=== PATIENT | female | born 1955 | race Caucasian/White ===

== ENCOUNTER 2023-12-26 01:18 | Inpatient (IN) | payer OTHER, SELFPAY ==
[2023-12-25] VITALS (11 sets, daily range): BP systolic 147–167; BP diastolic 52–59
[2023-12-25 19:32] LABS: % Basophils 0.8 % (0-2); % Eosinophils 3.3 % (0-6); % Immature Granulocytes 0.3 % (0-0.5); % Lymphocytes 12.2 % (20.5-51.1); % Monocytes 6.2 % (1.7-9.3); % Neutrophils 77.2 % (42.2-75.2); Absolute Basophils 0.1 10^3/uL (0-0.2); Absolute Eosinophils 0.3 10^3/uL (0-0.7); Absolute Lymphocytes 1.2 10^3/uL (1.2-3.4); Absolute Monocytes 0.6 10^3/uL (0.1-0.6); Absolute Neutrophils 7.7 10^3/uL (1.4-6.5); Mean Corpuscular Hgb 24.2 pg (27.0-31.0); Mean Corpuscular Volume 80.8 fL (81.0-99.0); Mean Platelet Volume 9.5 fL (7.4-10.4); Nucleated Red Blood Cells % 0 %; Platelet Count 415 10^3/uL (130-400); Red Cell Dist. Width 15.4 % (11.5-14.5)
[2023-12-25 19:35] LABS: Hemoglobin 6.3 g/dL (12.0-16.0)
[2023-12-25 19:48] LABS: ALT (SGPT) 13 U/L (0-35); AST (SGOT) 20 U/L (14-36); Albumin 3.5 g/dl (3.5-5.0); Alkaline Phosphatase 51 U/L (38-126); Blood Urea Nitrogen 30 mg/dl (7-17); Calcium 8.8 mg/dl (8.4-10.2); Carbon Dioxide 25 mmol/L (22-30); Chloride 105 mmol/L (98-107); Glucose 170 mg/dl (70-99); Potassium 4.3 mmol/L (3.5-5.1); Sodium 134 mmol/L (135-145); Total Bilirubin 0.3 mg/dl (0.2-1.3); eGFR 37.49
--- NOTE | 2023-12-25 20:06 | ED.GENMED ---
History of Present Illness
General
Chief Complaint: Abnormal Lab Value
Source: patient
Exam Limitations: none
Time Seen by Provider: 12/25/23 19:19
Travel History
Have you had any contact with someone who has COVID-19?: No
Do you have any symptoms of coronavirus? Fever > 100 degrees, chills, cough, shortness of breath, sore throat, loss of taste or smell, muscle aches, or headache?: No
History of Present Illness
History of Present Illness:
This is a 68 year old female that comes in with c/o abnormal labs. States that she was told that her Hgb is low at 6.7. States that she has felt sick for the past 5 days. States that she has been tired, and she just didn't want to do anything.
States that she had some dizziness this morning and has pressure with urination. Denies any fever, chills, chest pain, SOB, abd pain, nausea, vomiting, diarrhea, headache, urinary burning.
Past History
Past History
ED Past Medical History: CAD, COPD (Patient denies), CVA (Patient denies), GERD, HTN, Hypercholesterolemia, IDDM, Psychiatric (Depression, anxiety) and Other (Neuropathy, cardiomyopathy, PVD, Diverticulitis, Phantom limb pain, Anemia)
ED Past Surgical History: Appendectomy, Cardiac (Stent) and Orthopedic (Right above-knee amputation. )
Patient has exhibited threatening behavior?: No
PSI?: No
Social History
Tobacco: Non-smoker
Alcohol: None
Drug: None
Personal:
Living: senior living ([facility])
Review of Systems
Review of Systems
All Other Systems: ROS reviewed and negative except as documented in HPI and ROS
Constitutional: Reports no symptoms; Denies fever or chills
EENT: Reports no symptoms
Respiratory: Reports no symptoms; Denies cough or trouble breathing
Cardiac: Reports no symptoms; Denies chest pain
ABD/GI: Reports no symptoms; Denies abdominal pain, nausea, vomiting, diarrhea, bloody stools or black stools
: Reports incontinence and other (Pressure with urination); Denies dysuria, frequency or urgency
Musculoskeletal: Reports no symptoms
Skin: Reports no symptoms
Neurological: Reports dizzy; Denies headache
Psychiatric: Reports no symptoms
Phy Exam
General Physical Exam
General Presentation: no apparent distress
General age: appears stated age
General Skin: warm and dry
General Habitus: elderly
General Mental: alert
General Hydration: appears well hydrated
ENT Exam
ENT Exam: TM's normal, pharynx normal and neck supple
Eye Exam
Eye Exam: EOMI
Cardiovascular Exam
Cardiovascular Exam: regular rate/rhythm and no edema
Pulmonary Exam
Pulmonary Exam: lungs clear, no respiratory distress, no rales, chest non tender, no crackles, no rhonchi, no wheezing and no cough
Gastrointestinal Exam
Gastrointestinal Exam: normal bowel sounds, non tender, soft, no organomegaly, no pulsatile mass, non distended and other (stool brown hem negative)
Musculoskeletal Exam
Musculoskeletal Exam: no edema (Left lower leg)
Skin Exam
Skin Exam: normal color, warm/dry, no rash and no petechia
Psychiatric Exam
Psychiatric Exam: normal mood/affect
Course
Orders/Labs/Results
Orders:
Orders
12/25/23 19:10
Complete Blood Count/With Diff Urgent
Comprehensive Metabolic Panel Urgent
12/25/23 19:21
Type+Screen Urgent
12/25/23 20:02
* Blood Bank Products Urgent
Blood Bank Products: *Packed RBC Leuko(PRBC's)
Quantity: 2
Transfuse Today: Yes
Reason: Anemia
IV Insert/Care/Rem.- Treatment PRN
12/25/23 22:07
Urinalysis Reflex To Culture Urgent
Date Specimen was Collected: 12/25/23
Time Specimen was Collected: 20:15
Urine Microscopic Reflex Cult Urgent
Urine Culture Urgent
THANIA Source: U
Specimen Description:
Date Specimen was Collected: 12/25/23
Time Specimen was Collected: 20:15
12/25/23 23:08
Oxycodone/Acetaminophen [Percocet 5/325] 1 tablet PO NOW STA
12/25/23 23:55
CefTRIAXone [Rocephin] 1,000 mg IV NOW STA
Abnormal Lab Results
12/25/23 12/25/23 12/25/23
19:10 19:21 22:07
RBC 2.60 L 10^6/uL
(4.20-5.40)
Hgb 6.3 L* g/dL
(12.0-16.0)
Hct 21.0 L %
(37.0-47.0)
MCV 80.8 L fL
(81.0-99.0)
MCH 24.2 L pg
(27.0-31.0)
MCHC 30.0 L g/dL
(33.0-37.0)
RDW 15.4 H %
(11.5-14.5)
Plt Count 415 H 10^3/uL
(130-400)
Absolute Neuts (auto) 7.7 H 10^3/uL
(1.4-6.5)
Neutrophils % 77.2 H %
(42.2-75.2)
Lymphocytes % 12.2 L %
(20.5-51.1)
Sodium 134 L mmol/L
(135-145)
BUN 30 H mg/dl
(7-17)
Creatinine 1.5 H mg/dL
(0.6-1.0)
Glucose 170 H mg/dl
(70-99)
Total Protein 6.0 L g/dl
(6.3-8.2)
Ur Occult Blood Reflex 2+ A
(Negative)
Urine Nitrite (Reflex) Positive A
(Negative)
Leukocyte Esterase Rfl 2+ A
(Negative)
Urine WBC (Reflex) >100 A /HPF
(0-5)
Urine Bacteria (Reflex) Many A
(Negative)
Urine Albumin (Reflex) 1+ A
(Neg - Trace)
Crossmatch IS Only See Detail
12/25/23 19:10
12/25/23 19:10
H/H low. Anemia, Dehydration. Glucose nonfasting. Total protein slightly low.
Vital Signs
Initial and Last Documented VS:
Initial Vital Signs
Temp Pulse Resp BP Pulse Ox
98.8 F 77 16 147/54 95
12/25/23 19:09 12/25/23 19:09 12/25/23 19:09 12/25/23 19:09 12/25/23 19:09
Last Documented Vital Signs
Temp Pulse Resp BP Pulse Ox
98.3 F 76 20 155/58 97
12/25/23 22:55 12/25/23 23:55 12/25/23 23:55 12/25/23 23:55 12/25/23 23:55
MDM/Problems Addressed
Differential Diagnosis Includes:
Chronic anemia
MDM/Problems Addressed:
This is a 68 year old female that comes in with c/o abnormal labs. States that she was told that her Hgb is low. States that she is due to have a Colonoscopy the end of this month. States that she has received blood in the past.
Will get labs and as needed give blood. Patient is not hypoxic and appears very stable. Patient also has a UTI. Will admit. Hospitalist notified.
Chronic conditions affecting care:
Chronic anemia
Acute Exacerbation and/or Progression of Chronic Illness:
Anemia
*Pulse Oximetry
Patient hypoxic: no
*EKG
Interpreted by ED Provider?: NA
Rate: EKG- N/A
*[employer] Interpretation
Rate: normal
Heart Rate: 71
Rhythm: sinus
*Critical Care Note
Total Time (30-74mins, 75-104mins- exclusive of procedures): Not Applicable
ED Attending Note
-
Portions of this chart may have been created with voice recognition software.� Occasional wrong word or��sound alike� substitutions may have occurred due to the inherent limitations of voice recognition software.
Discharge Plan
Departure
Patient Disposition: Admit
Date of Disposition: 12/25/23
Time of Disposition: 23:59
Admit to: Med/Surg
Presentation/result/management discussed w/ accepting MD/DO: Hospitalist
Patient with high blood pressure during this ER visit?: Yes
Condition: Good
Covid-19: Not Applicable
Discharge Problem:
Urinary tract infection, Low hemoglobin
Prescriptions:
No Action
atorvastatin 40 MG tablet
40 mg PO HS
clonidine 0.1 MG patch weekly
0.1 mg transdermal FR
clopidogrel 75 MG tablet
75 mg PO DAILY
loratadine 10 MG tablet
10 mg PO DAILY
amlodipine 5 MG tablet
5 mg PO DAILY
pantoprazole 40 MG tablet,delayed release (DR/EC)
40 mg PO DAILY
solifenacin 5 MG tablet
5 mg PO DAILY
metoprolol tartrate 100 MG tablet
100 mg PO BID
hydralazine 50 MG tablet
50 mg PO TID
calcitriol 0.25 MCG capsule
0.25 mcg PO DAILY
duloxetine 60 MG capsule,delayed release(DR/EC)
60 mg PO BID
pregabalin 75 MG capsule
75 mg PO BID
Hold Instructions: Restart when mental status consistently improved
fenofibrate nanocrystallized 48 MG tablet
48 mg PO DAILY
clonazepam 0.5 MG tablet
0.5 mg PO HS
melatonin 5 mg Tablet
5 mg PO HS
benzonatate 100 mg capsule
100 mg PO TIDPRN PRN (Reason: cough)
Levemir FlexPen 100 unit/mL (3 mL) Insulin Pen
44 unit SC HS
ipratropium-albuterol 0.5 mg-3 mg(2.5 mg base)/3 mL solution for nebulization
3 ml inhalation R Q6HPRN PRN (Reason: shortness of breath or wheezing)
zolpidem 5 mg Tablet
5 mg PO HS Qty: 2 0RF
sennosides-docusate sodium [Senokot-S] 8.6-50 mg Tablet
1 tab-cap PO BID
guaifenesin 100 mg/5 mL Liquid
600 mg PO Q6H PRN (Reason: respiratory cough)
insulin aspart U-100 [Novolog FlexPen U-100 Insulin] 100 unit/mL (3 mL) Insulin Pen
2 - 14 sliding scale dose SC ACHS
Rx Instructions:
sliding scale: 201-250= 2; 251-300= 4; 301-350= 6; 351-400= 8; 401-450= 10; 451-500= 14
polyethylene glycol 3350 [Miralax] 17 gram powder in packet
17 g PO DAILY PRN (Reason: constipation)
docusate sodium 100 mg capsule
200 mg PO DAILY
insulin aspart U-100 [Novolog FlexPen U-100 Insulin] 100 unit/mL (3 mL) insulin pen
20 units SC MEALS
pantoprazole [Protonix] 40 mg tablet,delayed release (DR/EC)
40 mg PO BID Qty: 60 0RF
acetaminophen 325 mg Tablet
650 mg PO Q6HPRN PRN (Reason: mild to mod pain) Qty: 0 0RF
hydrocodone-acetaminophen 5-325 mg Tablet
1 tab PO Q6HPRN PRN (Reason: severe pain) Qty: 8 0RF
Referrals:
UNKNOWN - PT DOES,NOT KNOW [Unknown Provider] -
Interventions
Interventions:
*Risk Screen - Suicide Last Done: 12/25/23 19:09
*General Assessment Last Done: 12/25/23 19:09
*Neglect/Abuse Screening Last Done: 12/25/23 19:09
ED- Fall Risk Assessment Last Done: 12/25/23 22:55
*ED COVID-19 Vaccine History Last Done: 12/25/23 19:09
[2023-12-25 22:15] LABS: Urine Albumin 1+ (Neg - Trace); Urine Bilirubin Negative (Negative); Urine Character Very Cloudy (Clear); Urine Color Yellow; Urine Glucose Negative (Negative); Urine Ketone Negative (Negative); Urine Leukocyte 2+ (Negative); Urine Nitrite Positive (Negative); Urine Occult Blood 2+ (Negative); Urine Specific Gravity 1.015 (<1.030); Urine Urobilinogen Negative (Neg - 1+)
[2023-12-25 22:21] LABS: Urine Bacteria Many (Negative); Urine White Cell >100 /HPF (0-5)
[2023-12-25] MEDS: PERCOCET 5/325 1 TABLET PO (23:50)
[2023-12-26] VITALS (11 sets, daily range): BP systolic 122–194; BP diastolic 44–72; BMI 38.3
[2023-12-26] MEDS: ROCEPHIN 1000 MG IV ×2 (00:40→23:08)
--- NOTE | 2023-12-26 00:47 | HPS.HSE ---
Family Physician
-
Family Physician: Fernando Al
Chief Complaint
-
abnormal low Hgb, Bladder pressure
History of Present Illness
68F [facility] Res HX CAD on Plavix , CM, HTN, HX ACBLA due to gastric erosion, Fe Def Anemia, CKD3, diabetes, neuropathy, right lower extremity AKA sent ER for abn labs. Was told Hgb 6.7.
Report bladder pressure with urination but deneid dysurai.
Associated tiredness, fatigue and weakness.
ROS
Denies any fever, chills, chest pain, SOB, abd pain, nausea, vomiting, diarrhea, headache, urinary burning
Medical History
Past Medical History
Past Medical History: Reports Other
Additional Past Medical History:
AD, COPD (Patient denies), CVA (Patient denies), GERD, HTN, Hypercholesterolemia, IDDM, Psychiatric (Depression, anxiety) and Other (Neuropathy, cardiomyopathy, PVD, Diverticulitis, Phantom limb pain, Anemia)
Past Surgical History: Reports Other
Additional Past Surgical History:
Appendectomy, Cardiac (Stent) and Orthopedic (Right above-knee amputation. )
Social History
Tobacco: Non-smoker
Alcohol: None
Family History
Family History: Not pertinent
Allergies / Home Medications
Allergies reflects when Allergies were last updated in [facility].
Home Medications with original date entered in [facility]
Allergy/Medication List:
Allergies
Allergy/AdvReac Type Severity Reaction Status Date / Time
Iodinated Contrast Media Allergy Anaphylaxis Verified 08/21/23 20:06
Home Medications
atorvastatin 40 mg tablet 40 mg PO HS High cholesterol 12/26/18
clonidine 0.1 mg/24 hr weekly transdermal patch 0.1 mg transdermal FR Blood pressure 12/26/18
clopidogrel 75 mg tablet 75 mg PO DAILY Blood clot prevention/tx 12/26/18
loratadine 10 mg tablet 10 mg PO DAILY Allergies 12/26/18
amlodipine 5 mg tablet 5 mg PO DAILY Blood pressure 08/03/21
pantoprazole 40 mg tablet,delayed release 40 mg PO DAILY Gastrointestinal issue 08/03/21
solifenacin 5 mg tablet 5 mg PO DAILY Urinary issue 08/03/21
calcitriol 0.25 mcg capsule 0.25 mcg PO DAILY Kidney Disease 11/25/21
duloxetine 60 mg capsule,delayed release 60 mg PO BID Depression 11/25/21
fenofibrate nanocrystallized 48 mg tablet 48 mg PO DAILY High cholesterol 11/25/21
hydralazine 50 mg tablet 50 mg PO TID Blood pressure 11/25/21
metoprolol tartrate 100 mg tablet 100 mg PO BID Blood pressure 11/25/21
pregabalin 75 mg capsule 75 mg PO BID Fibromyalgia 11/25/21
clonazepam 0.5 mg tablet 0.5 mg PO HS Mental Health/Anxiety 01/06/22
melatonin 5 mg tablet 5 mg PO HS Sleep 08/27/22
benzonatate 100 mg capsule 100 mg PO TIDPRN PRN cough 10/16/22
insulin detemir U-100 100 unit/mL (3 mL) subcutaneous pen (Levemir FlexPen) 44 unit SC HS Diabetes 10/16/22
ipratropium 0.5 mg-albuterol 3 mg (2.5 mg base)/3 mL nebulization soln 3 ml inhalation R Q6HPRN PRN shortness of breath or wheezing 10/16/22
zolpidem 5 mg tablet 5 mg PO HS #2 tabs 10/24/22
docusate sodium 100 mg capsule 200 mg PO DAILY Constipation 08/21/23
guaifenesin 100 mg/5 mL oral liquid 600 mg PO Q6H PRN respiratory cough 08/21/23
insulin aspart U-100 100 unit/mL (3 mL) subcutaneous pen (Novolog FlexPen U-100 Insulin aspart) 2 - 14 sliding scale dose SC ACHS Diabetes 08/21/23
insulin aspart U-100 100 unit/mL (3 mL) subcutaneous pen (Novolog FlexPen U-100 Insulin aspart) 20 units SC MEALS Diabetes 08/21/23
polyethylene glycol 3350 17 gram oral powder packet (Miralax) 17 g PO DAILY PRN constipation 08/21/23
sennosides 8.6 mg-docusate sodium 50 mg tablet (Senokot-S) 1 tab-cap PO BID Constipation 08/21/23
acetaminophen 325 mg tablet 650 mg PO Q6HPRN PRN mild to mod pain #0 tabs 08/25/23
hydrocodone 5 mg-acetaminophen 325 mg tablet 1 tab PO Q6HPRN PRN severe pain #8 tabs 08/25/23
pantoprazole 40 mg tablet,delayed release (Protonix) 40 mg PO BID #60 tabs 08/25/23
Review of Systems
-
Constitutional: Reports See HPI
EENT: Reports No Symptoms
Respiratory: Reports No Symptoms
Cardiac: Reports No Symptoms
Abdomen/GI: Reports No Symptoms
: Reports See HPI
Musculoskeletal: Reports No Symptoms
Skin: Reports No Symptoms
Neurological: Reports No Symptoms
Endocrine: Reports No Symptoms
Hematologic/Lymphatic: Reports No Symptoms
Psych: Reports No Symptoms
Physical Exam
Vital Signs
Vital Signs
Temp Pulse Resp BP Pulse Ox
98.1 F 78 20 166/62 97
12/26/23 00:15 12/26/23 00:15 12/26/23 00:15 12/26/23 00:15 12/25/23 23:55
Physical Exam
General: No Apparent Distress
HEENT: NormoCephalic and Atraumatic
Respiratory: Clear
Cardiac: S1/S2 and Regular Rhythm
Breast: Deferred by me
GI: Soft, Non Tender and Non Distended
Rectal: Hem Negative (brown stool )
Genito-urinary: Deferred by me
Musculoskeletal: Other (Rt AKA )
Neuro: AO x 3
Psych: Calm and Other (pleasant )
Laboratory Results
-
12/25/23 19:10
12/25/23 19:10
Laboratory Results
Total Bilirubin 0.3 mg/dl (0.2-1.3) 12/25/23 19:10
AST 20 U/L (14-36) 12/25/23 19:10
ALT 13 U/L (0-35) 12/25/23 19:10
Alkaline Phosphatase 51 U/L (38-126) 12/25/23 19:10
Data Reviewed
-
Lab Data: Labs Reviewed by me
Old Records: Reviewed
Impression/Plan
-
Reviewed VS: HR 70s BP 155/60 RR 20 POx 97
Data
Hgb 6.3 - 10.1 on 08/24/23
MCV 80
Plt 415
Na 134
BUN 30
Cr 1.5 base line mid 1s
eGFR 38
UA suggestive of UTI
Last hospitalist admission: 08/21/23- 08/25/23 ACBLA due to gastric erosions required 2 unit od PRBCs
ASSESSMENT & PLAN
Pending Rx reconciliation
Sever symptomatic microcytic anemia
NEG HOB brown stool
HX ACBLA due to gastric erosion
Prior HX Blood Tx for severe anemia
- Held Plavix
- agree with 2 PRBCs
- IV PPI BID
- NPO and IVF
- check ferritin
- GI consult
Symptomatic UTI
- f/u UCx
- IV CFTZ
HX CAD
- cont. statin
- Held Plavix
CKD 3
- at base line Cr 1.5
- Trend Cr
- Calcitriol
Essential hypertension
- cont. amlodipine, clonidine, hydralazine, metoprolol
T2DM
- Decreased Levemir from 44 to 22 units
- add ISS low
Diabetic peripheral neuropathy
HX right AKA
- cont. pregabalin
Hyperlipidemia
- on statin/fenofibrate
GERD
Overactive bladder
Insomnia
Anxiety/depression: on clonazepam, zolpidem and duloxetine
COPD
DVT Px: SCd
Code: DNR
IP TLM
[2023-12-26 02:38] LABS: Glucose - Point of Care 220 mg/dl (70-99)
[2023-12-26 05:38] LABS: Hematocrit 27.9 % (37.0-47.0)
[2023-12-26 06:12] LABS: Blood Urea Nitrogen 28 mg/dl (7-17); Calcium 8.5 mg/dl (8.4-10.2); Carbon Dioxide 23 mmol/L (22-30); Chloride 107 mmol/L (98-107); Glucose 235 mg/dl (70-99); Potassium 4.2 mmol/L (3.5-5.1); Sodium 135 mmol/L (135-145); eGFR 44.51
[2023-12-26 06:21] LABS: Hemoglobin 8.9 g/dL (12.0-16.0)
[2023-12-26] MEDS: PROTONIX IV 40 MG IV ×2 (08:20→20:15)
[2023-12-26] MEDS: NSS (PRESERVATIVE FREE) 10 ML IV ×2 (08:21→20:15)
[2023-12-26 08:32] LABS: Glycohemoglobin (HgbA1c) 7.7 % (4.0-5.6)
--- NOTE | 2023-12-26 09:08 | W.PN.HOSP.TC ---
Today's Communication/Plan
-
continue AB
GI eval
Assessment / Plan
Assessment / Plan
68-year-old female admitted with abnormal labs from local custodial. Patient stated that she was also having some bladder pressure and urinary discomfort.
On examination awake alert oriented
Cardiovascular system S1-S2 appreciated
Chest clear to auscultation
Abdomen mild suprapubic tenderness
Bowel sounds present
Right AKA with no ulcers
Left with no edema
# Severe symptomatic microcytic anemia
Heme-negative
History of blood loss anemia secondary to gastric ulcer
2 units of packed red blood cells ordered hemoglobin 8.9
Plavix on hold
EGD 08/23/2023-normal esophagus, gastritis, normal duodenum
Never had a colonoscopy
Continue PPI
GI has been consulted
# Symptomatic UTI
Started on ceftriaxone
Follow cultures
# Diabetes-will use sliding scale coverage while n.p.o.
Will also use a low-dose of Levemir 20 units, NovoLog 5 units AC plus sliding scale while on clears
Patient normally uses 44 units of Levemir at bedtime, 20 units of NovoLog before meals and a custom sliding scale as outpatient
Hemoglobin A1c 7.7

# History of coronary artery disease/cardiomyopathy
Does not have any chest pain or shortness of breath
# Ttzwboabbqpm-mdpzqkosj-kobtvxonk-continue amlodipine, clonidine patch, hydralazine, metoprolol
# History of stroke-continue statin. Hold Plavix as above
# CKD stage III-continue calcitriol
# Chronic cough and COPD
# Peripheral neuropathy-likely diabetic
# History of PVD with right AKA
# Hyperlipidemia/atherosclerosis-continue statin. Hold Plavix as above
Continue fenofibrate
# GERD-on PPI as outpatient
# Overactive bladder
# Diverticulosis
# History of constipation-on MiraLAX, Senokot
# Cholelithiasis
# Ambulatory eaocatrbmwx-pmbnfmsmae-keuha able to transfer
# Chronic pain-narcotic dependent-continue outpatient regimen hydrocodone/acetaminophen
Also continue Lyrica
# Anxiety depression/insomnia-continue clonazepam, duloxetine, melatonin, Ambien
# Obesity
# DVT prophylaxis
# Full code
Discussed with nursing
Anticipated Discharge: 24 - 48 hours
Subjective/Interval History
-
Date of Service: December 26, 2023
Objective Data
-
Labs:
Laboratory Results
12/26/23 12/26/23 12/26/23
05:12 13:10 21:10
Hgb 8.9 L D Pending Pending
Hct 27.9 L Pending Pending
Sodium 135
Potassium 4.2
Chloride 107
Carbon Dioxide 23
BUN 28 H
Creatinine 1.3 H
Glucose 235 H
Calcium 8.5
Vital Signs:
Vital Signs
Temp Pulse Resp BP Pulse Ox
97.5 F 77 20 176/66 95
12/26/23 07:55 12/26/23 05:06 12/26/23 05:06 12/26/23 05:06 12/26/23 05:06
I&O
12/25/23 12/26/23 12/27/23
06:59 06:59 06:59
Intake Total 1400 / 1400
Output Total 600 / 600
Balance 800 / 800
--- NOTE | 2023-12-26 09:44 | EDRN ---
Pt has alot of pain and also is bedridden. She cannot stand up for orthostatic VS ( Rt AKA with alot of stump pain when moved. Provider updated
--- NOTE | 2023-12-26 10:08 | PHANOTE ---
Included on medication list provided by [facility] was: 1) SuTab [id number]: 12 tablets once on 01/04/24 at 23:59. Take 1 tab w/sip of water every 5 min. Complete in 60 min. Finish all 32oz of water; 2) SuTab [id number]: Take 12 tablets
once on 01/05/24. Take 1 tab w/sip of water every 5 min. Complete all in 60 min. Finish all 32oz water; 3) Simethicone 80mg x 2 tablets once on 01/04/24 with full 8oz water. When complete, drink another 16oz water over 30 min; 4) Simethicone 80mg x 2
tabs x 1 on 01/05/24 with 8oz water. When complete, drink another 16oz water over 30 min.
[2023-12-26] MEDS: NORCO 5/325 1 TABLET PO ×3 (10:32→20:15)
[2023-12-26 11:21] LABS: Iron 33 ug/dl (37-170)
--- NOTE | 2023-12-26 11:29 | CON.GI ---
Addendum entered and electronically signed by Stephanie Simons MD 12/26/23 18:52:
I saw and examined the patient.
The BULB BRANDER or PA's note was reviewed and I agree with the note.
Comment: 68-year-old female known to our group for prior admissions presenting with iron deficiency anemia. Of note, she had prior iron deficiency anemia and underwent upper endoscopy at that time which she has delayed. She has concerns about
taking a liquid prep. She is currently scheduled with Dr. Murphy January 04 with Sutab pill tablet prep. Clearance has been obtained to hold Plavix for 5 days. For now, would not recommend any inpatient evaluation for her iron deficiency anemia.
Will start Linzess as below to help with her baseline constipation. Recommend that she continues to take it as an outpatient until least her colonoscopy. We did discuss if her colonoscopy is negative, I would recommend a capsule endoscopy.
Patient asked if both are negative what would be the following step and I did explain that would be a hematology evaluation but I did recommend that she takes it 1 step at a time.
She has underwent a blood transfusion total of 2 units and her hemoglobin has improved. At this standpoint, okay from GI standpoint for discharge with colonoscopy in 10 days as scheduled. I alerted Dr. Murphy of patient's admission. Recommend repeat
CBC in 1 week outpatient. GI will sign off. Please call with any questions or issues.
Original Note:
Consultation
-
Date/Time Consultation Requested: 12/26/23 @ 05:40
Date/Time Consultation Performed: 12/26/23 @ 11:00
Requesting Provider: Dr. Jaimes
Performing Provider: MOHAN Beard; Dr. Liz Simons
Reason for Consultation: Sever symtomatic microcytic anemia , UTI
Medical History
Chief Complaint / HPI
Chief Complaint: low hgb, fatigue
History of Present Illness:
The patient is a 68-year-old female with a past medical history significant for CAD with stent, HTN, HLD, IDDM, neuropathy, RLE AKA, GERD, depression, anxiety, hx diverticulitis, obesity, chronic constipation, who presented to the ER with complaints
of fatigue with a low hgb outpatient. We are being asked to evaluate for severe microcytic iron deficiency anemia. Upon review of prior records, the patient was seen last year in October 2022 for episode of diverticulitis. At that time she had
reported significant constipation due to opioid use and decreased mobility. She had never had a colonoscopy, and was advised to follow-up outpatient for a colonoscopy after her episode of diverticulitis. She was advised on a bowel regimen at that
time as well. She was found to be somewhat anemic at that time (hgb 7-8 without overt bleeding) and was advised on outpatient EGD and colonoscopy for further evaluation. She was seen again in August with significant anemia with a hemoglobin of
5.5. She was also noted to be iron deficient and was started on IV iron. She did undergo an EGD which showed gastritis, but did not want to take a liquid prep for her colonoscopy, which she was advised to follow-up outpatient to arrange. She did
receive 2 units of blood at that time. She saw our nurse practitioner Kellee in the office last month and was set up for a colonoscopy which is pending on 01/05/[address] Murphy with Sutab prep. Patient notes prior to her admission she has been
feeling progressively fatigued over the past 5 days. She also admits to some dizziness but denies any loss conscious or syncope. She notes that she is constipated chronically and does take laxatives although she continues to have hard stools every
3 to 4 days. She lives at [facility] and is unsure as to the medication she gets on a daily basis. She otherwise denies any abdominal pain, nausea, vomiting, heartburn, reflux, loss of appetite, weight loss, fevers, chills, chest pain, or
shortness of breath. She has never had a hematology evaluation for her anemia. She denies any melena, hematochezia, or hematemesis. She notes that she is on chronic narcotics for chronic pain and is on bed or wheelchair most of the time due to
her right qzkqp-gdz-vted amputation. She does also report some bladder discomfort as well and was found to have concern for possible UTI. She notes prior colonoscopy preps had failed as she had vomited the liquid and refuses to take liquid again.
He denies any family history of colon cancer. She denies any significant use of NSAIDs. She does have a history of CAD in which she uses Plavix. On admission her hemoglobin was 6.3, she did receive 2 units of packed red blood cells with
improvement of her hemoglobin to 8.9. She currently feels improved. She was made n.p.o. and admitted for further evaluation by GI. Other pertinent lab findings include MCV 80.8, serum iron 33, iron saturation 8, BUN 30, creatinine 1.5, sodium
134. She was started on IV ceftriaxone for possible UTI.
Past Medical History
Past Medical History: CAD (Stent), CVA, GERD, HTN, Hypercholesterolemia, IDDM, Psychiatric (Anxiety, depression) and Other (History of diverticulitis, chronic constipation, chronic pain syndrome on chronic opioids, iron deficiency anemia,
neuropathy, morbid obesity, CKD stage III, overactive bladder)
Past Surgical History: Appendectomy, Cardiac (Stent) and Orthopedic (Right lower extremity vysin-fvt-plwj amputation)
Social History
Tobacco: Non-Smoker
Alcohol: None
Drug: None
Living: [facility] ([facility])
Family History
Family History: Reviewed & Not Pertinent
Allergies / Home Medications
Allergy/AdvReac Type Severity Reaction Status Date / Time
Iodinated Contrast Media Allergy Anaphylaxis Verified 08/21/23 20:06
Medication Instructions Recorded
atorvastatin 40 mg tablet 40 mg PO HS High cholesterol 12/26/18
clonidine 0.1 mg/24 hr weekly 0.1 mg transdermal TH Blood 12/26/18
transdermal patch pressure
clopidogrel 75 mg tablet 75 mg PO DAILY Blood clot 12/26/18
prevention/tx
loratadine 10 mg tablet 10 mg PO DAILY Allergies 12/26/18
amlodipine 5 mg tablet 5 mg PO DAILY Blood pressure 08/03/21
pantoprazole 40 mg tablet,delayed 40 mg PO DAILY Gastrointestinal 08/03/21
release issue
solifenacin 5 mg tablet 5 mg PO DAILY bladder spasm 08/03/21
calcitriol 0.25 mcg capsule 0.25 mcg PO DAILY Kidney Disease 11/25/21
duloxetine 60 mg capsule,delayed 60 mg PO BID Depression 11/25/21
release
fenofibrate nanocrystallized 48 mg 48 mg PO DAILY High cholesterol 11/25/21
tablet
hydralazine 50 mg tablet 50 mg PO TID Blood pressure 11/25/21
metoprolol tartrate 100 mg tablet 100 mg PO BID Blood pressure 11/25/21
pregabalin 75 mg capsule 75 mg PO BID Fibromyalgia 11/25/21
clonazepam 0.5 mg tablet 0.5 mg PO HS anxiety 01/06/22
melatonin 5 mg tablet 5 mg PO HS Sleep 08/27/22
insulin detemir U-100 100 unit/mL 44 unit SC HS Diabetes 10/16/22
(3 mL) subcutaneous pen (Levemir
FlexPen)
ipratropium 0.5 mg-albuterol 3 mg 3 ml inhalation R Q6HPRN PRN 10/16/22
(2.5 mg base)/3 mL nebulization shortness of breath or wheezing
soln
zolpidem 5 mg tablet 5 mg PO HS #2 tabs 10/24/22
docusate sodium 100 mg capsule 200 mg PO DAILY Constipation 08/21/23
guaifenesin 100 mg/5 mL oral liquid 600 mg PO Q6H PRN respiratory cough 08/21/23
insulin aspart U-100 100 unit/mL 2 - 14 sliding scale dose SC ACHS 08/21/23
(3 mL) subcutaneous pen (Novolog Diabetes
FlexPen U-100 Insulin aspart)
insulin aspart U-100 100 unit/mL 20 units SC MEALS Diabetes 08/21/23
(3 mL) subcutaneous pen (Novolog
FlexPen U-100 Insulin aspart)
polyethylene glycol 3350 17 gram 17 g PO HS PRN constipation 08/21/23
oral powder packet (Miralax)
sennosides 8.6 mg-docusate sodium 2 tab PO HS Constipation 08/21/23
50 mg tablet (Senokot-S)
acetaminophen 325 mg tablet 325 mg PO Q4H PRN mild pain 12/26/23
acetaminophen 325 mg tablet 650 mg PO Q4H PRN moderate 12/26/23
pain/temp>100F
glucagon 1 mg solution for 1 mg IM PRN PRN symptomatic 12/26/23
injection (Glucagon Emergency Kit) hypoglycemia
hydrocodone 5 mg-acetaminophen 325 1 tab PO Q4HPRN PRN severe pain 12/26/23
mg tablet
Review of Systems
-
History Source: Patient
Constitutional: Reports Fatigue
EENT: Reports No Symptoms
Respiratory: Reports No Symptoms
Cardiac: Reports No Symptoms
Abdomen/GI: Reports Constipated
: Reports Other (bladder pressure)
Musculoskeletal: Reports Joint Pain
Skin: Reports No Symptoms
Neurological: Reports Dizzy and Weakness
Vital Signs
Temp Pulse Resp BP Pulse Ox
97.5 F 92 20 187/72 94
12/26/23 07:55 12/26/23 09:35 12/26/23 05:06 12/26/23 07:00 12/26/23 07:00
Physical Exam
Exam
General: Well Developed, No Apparent Distress and Other (obese female, pale appearing in NAD)
HEENT: Normocephalic, Anicteric and Atraumatic
Respiratory: Clear
Cardiac: S1/S2 and Regular Rhythm
Breast: Deferred by me
GI: Soft, Non Tender, Non Distended, Normal Bowel Sounds and Other (obese abdomen)
Rectal: Deferred by Provider and Other (brown heme negative per ER records)
Musculoskeletal: No Edema and Other (R AKA)
Skin: Warm and Dry
Neuro: Awake and Alert
Psych: Calm
Results
WBC 10.0 10^3/uL (4.8-10.8) 12/25/23 19:10
Hgb 8.9 g/dL (12.0-16.0) L D 12/26/23 05:12
Hct 27.9 % (37.0-47.0) L 12/26/23 05:12
MCV 80.8 fL (81.0-99.0) L 12/25/23 19:10
Plt Count 415 10^3/uL (130-400) H 12/25/23 19:10
Absolute Neuts (auto) 7.7 10^3/uL (1.4-6.5) H 12/25/23 19:10
Sodium 135 mmol/L (135-145) 12/26/23 05:12
Potassium 4.2 mmol/L (3.5-5.1) 12/26/23 05:12
Chloride 107 mmol/L (98-107) 12/26/23 05:12
Carbon Dioxide 23 mmol/L (22-30) 12/26/23 05:12
BUN 28 mg/dl (7-17) H 12/26/23 05:12
Creatinine 1.3 mg/dL (0.6-1.0) H 12/26/23 05:12
Calcium 8.5 mg/dl (8.4-10.2) 12/26/23 05:12
Total Bilirubin 0.3 mg/dl (0.2-1.3) 12/25/23 19:10
AST 20 U/L (14-36) 12/25/23 19:10
ALT 13 U/L (0-35) 12/25/23 19:10
Alkaline Phosphatase 51 U/L (38-126) 12/25/23 19:10
Diagnostic Image Results:
Prior GI Procedures:
EGD: 08/23/23 Dr. Murphy: Normal esophagus. Gastritis. Biopsied. Normal examined duodenum. Biopsied. bx negative
Colonoscopy: none
Assessment / Plan
-
The patient is a 68-year-old female with a past medical history significant for CAD with stent, HTN, HLD, IDDM, neuropathy, RLE AKA, GERD, depression, anxiety, hx diverticulitis, obesity, chronic constipation, chronic anemia, who presented to the ER
with complaints of fatigue with a low hgb outpatient. We are being asked to evaluate for severe microcytic iron deficiency anemia. She presents for with outpatient abnormal labs with a low hemoglobin and progressive fatigue, found of hemoglobin of
6.3. Stool was brown heme-negative in the emergency room but with recurrent iron deficiency anemia of unclear etiology. Had EGD in August of last year which showed gastritis otherwise normal with negative biopsies. She has never had a
colonoscopy before. She does admit to chronic constipation secondary to immobility and chronic opioids. Currently moving her bowels every 3 to 4 days with hard stools. She has a colonoscopy scheduled for 01/05/[address] Murphy
Problem list:
-Severe microcytic anemia
-Iron deficiency
-Chronic constipation
-CAD with stent on Plavix
-Acute on chronic anemia
Other pertinent medical history:
-Hypertension
-Hyperlipidemia
-Insulin-dependent diabetes type 2
-Right lower extremity gnkkr-ksv-wewy amputation
-GERD
-Depression/anxiety
-History of diverticulitis in October 2022
-Morbid obesity
-Neuropathy
Recommendations:
-Etiology of recurrent severe microcytic anemia unclear, possibly multifactorial secondary to lower GI source (AVM versus polyps versus other) versus CKD versus underlying hematologic disorder versus other. Cannot rule out malignancy with no prior
history of colonoscopy.
---EGD in August showing gastritis otherwise unrevealing.
-Agree that she will need a colonoscopy for further evaluation, but with her history of chronic constipation she would likely need prolonged prep. She is scheduled for a colonoscopy with Dr. Murphy on 01/05/2024 which she should keep this appointment.
-Repeat H&H in the morning and if stable can likely be discharged from a GI standpoint and follow-up outpatient for her scheduled colonoscopy
-Will initiate Linzess 72 mcg daily to help with her constipation as she refuses MiraLAX
-If further drop in hemoglobin or obvious signs of bleeding to consider inpatient scope and prep.
-Repeat H&H and transfuse as needed keep hemoglobin greater than 7-8 with history of stent
-She will need a 5-day Plavix hold, which per our outpatient records was approved.
-Avoid NSAIDs
-Check iron studies, consider IV iron inpatient if significantly low
-Will follow
-
-
Thank you for consultation and allowing me to participate in the patient's care. Please call the implementation services analyst GI physician during the after hours with any questions or concerns.
[2023-12-26 11:31] LABS: Percent Saturation 8 % (20-50); Total Iron Binding Capacity 397 ug/dl (265-497)
--- NOTE | 2023-12-26 11:31 | CM ---
CM reviewed medical records. CM met with patient in room. Patient is bedbound due to AKA. Patient is confused at times, but pleasant. Patient has been LTC resident at [facility] for three years. Plan to return on discharge.
PLAN: LTC [facility].
[2023-12-26] MEDS: COLACE 200 MG PO (11:32)
[2023-12-26] MEDS: CYMBALTA DELAYED RELEASE 60 MG PO ×2 (11:33→20:16)
[2023-12-26] MEDS: LYRICA 75 MG PO ×2 (11:33→20:16)
[2023-12-26] MEDS: LOPRESSOR 100 MG PO ×2 (11:33→20:16)
[2023-12-26] MEDS: CLARITIN 10 MG PO (11:33)
[2023-12-26] MEDS: NORVASC 5 MG PO (11:34)
[2023-12-26 11:46] LABS: Ferritin 6.1 ng/ml (11.1-264.0)
[2023-12-26 12:13] LABS: Glucose - Point of Care 344 mg/dl (70-99)
[2023-12-26] MEDS: TRICOR 48 MG PO (12:28)
[2023-12-26] MEDS: ROCALTROL 0.25 MCG PO (12:28)
[2023-12-26] MEDS: VESICARE 5 MG PO (12:28)
[2023-12-26] MEDS: NOVOLOG FLEXPEN-LOW RESISTANCE 4 UNITS SC (13:05)
[2023-12-26] MEDS: NOVOLOG FLEXPEN 5 UNITS SC ×2 (13:05→17:22)
[2023-12-26 13:35] LABS: Hematocrit 31.2 % (37.0-47.0)
[2023-12-26] MEDS: APRESOLINE 50 MG PO ×2 (15:36→22:03)
[2023-12-26 17:19] LABS: Glucose - Point of Care 281 mg/dl (70-99)
[2023-12-26] MEDS: NOVOLOG FLEXPEN-LOW RESISTANCE 3 UNITS SC (17:21)
[2023-12-26] MEDS: FLUSH (NSS) 2 FLUSH IV ×2 (20:17→23:08)
[2023-12-26 21:54] LABS: Hematocrit 27.5 % (37.0-47.0); Hemoglobin 8.9 g/dL (12.0-16.0)
[2023-12-26 21:55] LABS: Glucose - Point of Care 319 mg/dl (70-99)
[2023-12-26] MEDS: LEVEMIR 0.200000000000000011 UNITS SC (22:01)
[2023-12-26] MEDS: SENOKOT-S 2 TABLET PO (22:01)
[2023-12-26] MEDS: MELATONIN 5 MG PO (22:03)
[2023-12-26] MEDS: KLONOPIN 0.5 MG PO (22:03)
[2023-12-26] MEDS: AMBIEN 5 MG PO (22:03)
[2023-12-26] MEDS: LIPITOR 40 MG PO (22:03)
[2023-12-26] MEDS: STERILE WATER FOR INJECTION 10 ML IV (23:08)
[2023-12-27] VITALS (7 sets, daily range): BP systolic 115–147; BP diastolic 41–65
[2023-12-27] MEDS: LINZESS 72 MCG PO (06:39)
[2023-12-27 06:52] LABS: Hemoglobin 8.9 g/dL (12.0-16.0); Mean Corp Hgb Conc. 30.7 g/dL (33.0-37.0); Mean Corpuscular Hgb 25.4 pg (27.0-31.0); Mean Corpuscular Volume 82.9 fL (81.0-99.0); Mean Platelet Volume 9.2 fL (7.4-10.4); Platelet Count 367 10^3/uL (130-400); Red Cell Dist. Width 15.3 % (11.5-14.5); White Blood Cell Count 8.6 10^3/uL (4.8-10.8)
[2023-12-27 07:25] LABS: Blood Urea Nitrogen 29 mg/dl (7-17); Calcium 9.2 mg/dl (8.4-10.2); Carbon Dioxide 25 mmol/L (22-30); Chloride 102 mmol/L (98-107); Estimated Creatinine Clearance 41 ml/min; Glucose 267 mg/dl (70-99); Magnesium 1.8 mg/dl (1.6-2.3); Potassium 4.3 mmol/L (3.5-5.1); Sodium 136 mmol/L (135-145); eGFR 44.51
--- NOTE | 2023-12-27 07:51 | W.PN.HOSP.TC ---
Today's Communication/Plan
-
Continue IV antibiotics. Monitor hemoglobin.
Assessment / Plan
Assessment / Plan
68-year-old female admitted with abnormal labs from local halfway. Patient stated that she was also having some bladder pressure and urinary discomfort.
Physical exam:
General: Well Developed, Well Nourished and No Apparent Distress
HEENT: Normocephalic, Atraumatic and Moist Mucous Membranes
Respiratory: Clear to Auscultation; Negative Wheezes, Rales or Rhonchi
Cardiac: Regular Rhythm and S1/S2
GI: Soft, Nontender and Nondistended
Musculoskeletal: BKA. No Clubbing, No Cyanosis and No Edema
Neuro: Awake, Alert and Oriented. Patient bedbound prior to coming to the hospital.
Psych: Calm
A/P:
# Severe symptomatic microcytic anemia
Heme-negative
History of blood loss anemia secondary to gastric ulcer
2 units of packed red blood cells ordered hemoglobin 8.9
Plavix on hold
EGD 08/23/2023-normal esophagus, gastritis, normal duodenum
Never had a colonoscopy
Continue PPI
GI has been consulted--> GI planning to do outpatient colonoscopy and they signed off.
# Symptomatic UTI
Started on ceftriaxone
Follow cultures
# Diabetes-will use sliding scale coverage
Will also use a low-dose of Levemir 20 units, NovoLog 5 units AC plus sliding scale while on low residue
Patient normally uses 44 units of Levemir at bedtime, 20 units of NovoLog before meals and a custom sliding scale as outpatient--> will go back to her home regimen depending on her blood sugar scale.
Hemoglobin A1c 7.7

# History of coronary artery disease/cardiomyopathy
Does not have any chest pain or shortness of breath
# Zdeljjgvxqef-axllpnntf-apoeuwnjg-continue amlodipine, clonidine patch, hydralazine, metoprolol
# History of stroke-continue statin. Hold Plavix as above
# CKD stage III-continue calcitriol
# Chronic cough and COPD
# Peripheral neuropathy-likely diabetic
# History of PVD with right AKA
# Hyperlipidemia/atherosclerosis-continue statin. Hold Plavix as above
Continue fenofibrate
# GERD-on PPI as outpatient
# Overactive bladder
# Diverticulosis
# History of constipation-on MiraLAX, Senokot
# Cholelithiasis
# Ambulatory fmbojijjmeb-yiwosgjfzm-atcgy able to transfer
# Chronic pain-narcotic dependent-continue outpatient regimen hydrocodone/acetaminophen
Also continue Lyrica
# Anxiety depression/insomnia-continue clonazepam, duloxetine, melatonin, Ambien
# Obesity
# DVT prophylaxis
# Full code
Anticipated Discharge: 24 - 48 hours
Subjective/Interval History
-
Date of Service: December 27, 2023
Patient complains of urinary symptoms that have been improving. No abdominal pain nausea or vomiting.
Objective Data
-
Labs:
Laboratory Results
12/26/23 12/27/23
21:47 06:26
WBC 8.6
Hgb 8.9 L 8.9 L
Hct 27.5 L 29.0 L
Plt Count 367
Sodium 136
Potassium 4.3
Chloride 102
Carbon Dioxide 25
BUN 29 H
Creatinine 1.3 H
Glucose 267 H
Calcium 9.2
Vital Signs:
Vital Signs
Temp Pulse Resp BP Pulse Ox
98.3 F 60 18 116/41 95
12/27/23 04:00 12/27/23 04:00 12/27/23 04:00 12/27/23 04:00 12/27/23 04:00
I&O
12/26/23 12/27/23 12/28/23
06:59 06:59 06:59
Intake Total 1400 / 1400 1030 / 1030
Output Total 600 / 600
Balance 800 / 800 1030 / 1030
[2023-12-27] MEDS: ROCALTROL 0.25 MCG PO (08:46)
[2023-12-27] MEDS: TRICOR 48 MG PO (08:47)
[2023-12-27] MEDS: COLACE 200 MG PO (08:47)
[2023-12-27] MEDS: LOPRESSOR 100 MG PO ×2 (08:47→19:55)
[2023-12-27] MEDS: NSS (PRESERVATIVE FREE) 10 ML IV ×2 (08:47→19:54)
[2023-12-27] MEDS: LYRICA 75 MG PO ×2 (08:47→19:55)
[2023-12-27] MEDS: CLARITIN 10 MG PO (08:47)
[2023-12-27] MEDS: NORVASC 5 MG PO (08:47)
[2023-12-27] MEDS: CYMBALTA DELAYED RELEASE 60 MG PO ×2 (08:47→19:55)
[2023-12-27] MEDS: APRESOLINE 50 MG PO ×3 (08:47→22:06)
[2023-12-27] MEDS: PROTONIX IV 40 MG IV ×2 (08:48→19:54)
[2023-12-27 08:51] LABS: Glucose - Point of Care 281 mg/dl (70-99)
[2023-12-27] MEDS: NOVOLOG FLEXPEN-LOW RESISTANCE 3 UNITS SC (08:51)
[2023-12-27] MEDS: NOVOLOG FLEXPEN 5 UNITS SC ×2 (08:52→12:28)
[2023-12-27] MEDS: DESENEX/MITRAZOL/ZEASORB 1 APPLIC TOPICAL ×2 (08:52→20:01)
[2023-12-27] MEDS: VESICARE 5 MG PO (09:32)
[2023-12-27 12:24] LABS: Glucose - Point of Care 338 mg/dl (70-99)
[2023-12-27] MEDS: NOVOLOG FLEXPEN-LOW RESISTANCE 4 UNITS SC (12:29)
[2023-12-27 16:56] LABS: Glucose - Point of Care 354 mg/dl (70-99)
[2023-12-27] MEDS: NOVOLOG FLEXPEN-LOW RESISTANCE 5 UNITS SC (17:04)
[2023-12-27] MEDS: NOVOLOG FLEXPEN 20 UNITS SC (17:04)
[2023-12-27] MEDS: NORCO 5/325 1 TABLET PO (19:55)
--- NOTE | 2023-12-27 20:00 | PTCARENOTE ---
Pt w/ clonidine patch to R shoulder blade
[2023-12-27 21:30] LABS: Glucose - Point of Care 263 mg/dl (70-99)
[2023-12-27] MEDS: KLONOPIN 0.5 MG PO (22:04)
[2023-12-27] MEDS: LIPITOR 40 MG PO (22:04)
[2023-12-27] MEDS: MELATONIN 5 MG PO (22:05)
[2023-12-27] MEDS: LEVEMIR 0.440000000000000002 UNITS SC (22:05)
[2023-12-27] MEDS: AMBIEN 5 MG PO (22:05)
[2023-12-27] MEDS: SENOKOT-S 2 TABLET PO (22:05)
[2023-12-28] MEDS: STERILE WATER FOR INJECTION 10 ML IV (00:54)
[2023-12-28] MEDS: ROCEPHIN 1000 MG IV (00:54)
[2023-12-28 03:25] VITALS: BP 145/59
[2023-12-28 06:00] VITALS: BMI 38.4
[2023-12-28 06:41] LABS: Hematocrit 29.3 % (37.0-47.0); Mean Corp Hgb Conc. 30.7 g/dL (33.0-37.0); Mean Corpuscular Hgb 25.8 pg (27.0-31.0); Mean Platelet Volume 9.4 fL (7.4-10.4); Platelet Count 358 10^3/uL (130-400); Red Blood Cell Count 3.49 10^6/uL (4.20-5.40); Red Cell Dist. Width 15.3 % (11.5-14.5); White Blood Cell Count 8.5 10^3/uL (4.8-10.8)
[2023-12-28] MEDS: LINZESS 72 MCG PO (06:53)
[2023-12-28 07:00] VITALS: BP 149/60
[2023-12-28 07:16] LABS: Blood Urea Nitrogen 32 mg/dl (7-17); Calcium 9.2 mg/dl (8.4-10.2); Carbon Dioxide 26 mmol/L (22-30); Chloride 102 mmol/L (98-107); Estimated Creatinine Clearance 41 ml/min; Glucose 223 mg/dl (70-99); Potassium 4.3 mmol/L (3.5-5.1); Sodium 138 mmol/L (135-145); eGFR 44.51
--- NOTE | 2023-12-28 07:51 | W.PN.HOSP.TC ---
Addendum entered and electronically signed by Jose E Hylton MD 12/29/23 14:19:
Yes, acute blood loss anemia is related to associated with exacerbated by Plavix.
Original Note:
Today's Communication/Plan
-
Oral antibiotics. Home doses of insulin. Discharge planning
Assessment / Plan
Assessment / Plan
68-year-old female admitted with abnormal labs from local [facility]. Patient stated that she was also having some bladder pressure and urinary discomfort.
Physical exam:
General: Well Developed, Well Nourished and No Apparent Distress
HEENT: Normocephalic, Atraumatic and Moist Mucous Membranes
Respiratory: Clear to Auscultation; Negative Wheezes, Rales or Rhonchi
Cardiac: Regular Rhythm and S1/S2
GI: Soft, Nontender and Nondistended
Musculoskeletal: BKA. No Clubbing, No Cyanosis and No Edema
Neuro: Awake, Alert and Oriented. Patient bedbound prior to coming to the hospital.
Psych: Calm
A/P:
# Severe symptomatic microcytic anemia
Heme-negative
History of blood loss anemia secondary to gastric ulcer
2 units of packed red blood cells ordered hemoglobin 8.9-->today hb 9
Plavix on hold
EGD 08/23/2023-normal esophagus, gastritis, normal duodenum
Never had a colonoscopy--> GI planning to do outpatient colonoscopy and they signed off.
Continue PPI
GI has been consulted--> GI planning to do outpatient colonoscopy and they signed off.
# Symptomatic UTI
Started on ceftriaxone--> changed to oral cefazolin today
Follow cultures--> mixed growth.
# Diabetes-will use sliding scale coverage
Will also use a low-dose of Levemir 20 units, NovoLog 5 units AC plus sliding scale while on low residue--> she is now back to her home regimen on 12/27 and blood sugars elevated so will require further adjustment
Patient normally uses 44 units of Levemir at bedtime, 20 units of NovoLog before meals and a custom sliding scale as outpatient
Hemoglobin A1c 7.7

# History of coronary artery disease/cardiomyopathy
Does not have any chest pain or shortness of breath
# Oevgedjikeih-auxobeery-gmqkabsfg-continue amlodipine, clonidine patch, hydralazine, metoprolol
# History of stroke-continue statin. Hold Plavix as above
# CKD stage III-continue calcitriol
# Chronic cough and COPD
# Peripheral neuropathy-likely diabetic
# History of PVD with right AKA
# Hyperlipidemia/atherosclerosis-continue statin. Hold Plavix as above
Continue fenofibrate
# GERD-on PPI as outpatient
# Overactive bladder
# Diverticulosis
# History of constipation-on MiraLAX, Senokot
# Cholelithiasis
# Ambulatory ykiguoxqldc-kxymfpqmit-kkold able to transfer
# Chronic pain-narcotic dependent-continue outpatient regimen hydrocodone/acetaminophen
Also continue Lyrica
# Anxiety depression/insomnia-continue clonazepam, duloxetine, melatonin, Ambien
# Obesity
# DVT prophylaxis
# Full code
Anticipated Discharge: Today
Subjective/Interval History
-
Date of Service: December 28, 2023
Patient seen and examined. No signs of bleeding.
Objective Data
-
Labs:
Laboratory Results
12/28/23
06:12
WBC 8.5
Hgb 9.0 L
Hct 29.3 L
Plt Count 358
Sodium 138
Potassium 4.3
Chloride 102
Carbon Dioxide 26
BUN 32 H
Creatinine 1.3 H
Glucose 223 H
Calcium 9.2
Vital Signs:
Vital Signs
Temp Pulse Resp BP Pulse Ox
98.6 F 65 19 145/59 97
12/28/23 03:25 12/28/23 03:25 12/28/23 03:25 12/28/23 03:25 12/28/23 03:25
I&O
12/27/23 12/28/23 12/29/23
06:59 06:59 06:59
Intake Total 1030 / 1030 840 / 840
Balance 1030 / 1030 840 / 840
[2023-12-28 08:19] LABS: Glucose - Point of Care 225 mg/dl (70-99)
[2023-12-28] MEDS: CLARITIN 10 MG PO (08:41)
[2023-12-28] MEDS: APRESOLINE 50 MG PO ×2 (08:42→16:19)
[2023-12-28] MEDS: CYMBALTA DELAYED RELEASE 60 MG PO (08:43)
[2023-12-28] MEDS: LOPRESSOR 100 MG PO (08:43)
[2023-12-28] MEDS: NORVASC 5 MG PO (08:43)
[2023-12-28] MEDS: PROTONIX 40 MG PO (08:43)
[2023-12-28] MEDS: TRICOR 48 MG PO (08:43)
[2023-12-28] MEDS: VESICARE 5 MG PO (08:43)
[2023-12-28] MEDS: ROCALTROL 0.25 MCG PO (08:43)
[2023-12-28] MEDS: COLACE PO (08:44)
[2023-12-28] MEDS: LYRICA 75 MG PO (08:44)
[2023-12-28] MEDS: DESENEX/MITRAZOL/ZEASORB 1 APPLIC TOPICAL (08:44)
[2023-12-28] MEDS: KEFLEX 500 MG PO (08:49)
[2023-12-28] MEDS: CATAPRES-TTS-1 0.100000000000000006 MG TRANSDERM (08:57)
[2023-12-28] MEDS: NORCO 5/325 1 TABLET PO (08:57)
[2023-12-28 09:46] LABS: Glucose - Point of Care 269 mg/dl (70-99)
[2023-12-28] MEDS: NOVOLOG FLEXPEN 20 UNITS SC ×3 (09:52→16:15)
[2023-12-28] MEDS: NOVOLOG FLEXPEN-LOW RESISTANCE 3 UNITS SC (09:53)
--- NOTE | 2023-12-28 10:38 | W.DCSUMMARY ---
Discharge Summary
Discharge Data
Date of Admission: 12/26/23
Date of Discharge: 12/28/23
-
Pending Results: No
Hospital Course
Patient 68 years old female with history of CAD, hypertension, hyperlipidemia, diabetes mellitus, peripheral neuropathy right lower extremity AKA, GERD, depression, anxiety, diverticular disease, obesity, chronic constipation, chronic iron
deficiency anemia, presented to the hospital with worsening anemia. Her hemoglobin upon presentation was 6.3, she received some blood transfusion and hemoglobin raised appropriately. GI was consulted. GI felt that given the patient had an
outpatient this can be pursued as an outpatient and since she does not have any signs of active bleeding at the moment they did not recommended to do any intervention in the hospital. She was kept in monitor hemoglobin with a conservative approach
hemoglobin has been 9 upon discharge and he has remained stable for the last couple of days. She also had urinary tract infection symptoms for which she was treated with IV Rocephin and her urine culture had mixed growth so it was switched to oral
antibiotic to complete a 5 days course. Otherwise, patient is afebrile, hemodynamically stable, no signs of active bleeding. No other events were noticed. She will discharge back to alf in relatively stable condition today.
Discharge duration: 36 minutes
Discharge Plan
-
Patient Disposition: Penitentiary/SNF
Discharge Diagnosis/Procedures: Acute blood loss anemia. Constipation. Suspicion for gastrointestinal bleed and further workup as outpatient. History of coronary artery disease.
Diet: Low Cholesterol
Activity: As tolerated
Driving Restrictions: As prior to admission
Blood Work: Please PCP to order CBC, BMP within 1 week
Referrals:
Fernando Al I., DO [Family Provider] - in less than 1 week
Stephanie Simons MD [Active] - in one to two weeks
Prescriptions:
New
cephalexin 500 mg Capsule
500 mg PO BID 5 Days Qty: 10 0RF
Linzess 72 mcg Capsule
72 mcg PO DAILY@0700 Qty: 14 0RF
Continued
atorvastatin 40 MG tablet
40 mg PO HS
clonidine 0.1 MG patch weekly
0.1 mg transdermal TH
loratadine 10 MG tablet
10 mg PO DAILY
amlodipine 5 MG tablet
5 mg PO DAILY
pantoprazole 40 MG tablet,delayed release (DR/EC)
40 mg PO DAILY
solifenacin 5 MG tablet
5 mg PO DAILY
metoprolol tartrate 100 MG tablet
100 mg PO BID
hydralazine 50 MG tablet
50 mg PO TID
calcitriol 0.25 MCG capsule
0.25 mcg PO DAILY
duloxetine 60 MG capsule,delayed release(DR/EC)
60 mg PO BID
pregabalin 75 MG capsule
75 mg PO BID
Hold Instructions: Restart when mental status consistently improved
Rx Instructions:
12/26/23: filled #60 on 12/12/23 [facility]
fenofibrate nanocrystallized 48 MG tablet
48 mg PO DAILY
melatonin 5 mg Tablet
5 mg PO HS
Levemir FlexPen 100 unit/mL (3 mL) Insulin Pen
44 unit SC HS
Rx Instructions:
notify MD if BS<60 or >400
ipratropium-albuterol 0.5 mg-3 mg(2.5 mg base)/3 mL solution for nebulization
3 ml inhalation R Q6HPRN PRN (Reason: shortness of breath or wheezing)
zolpidem 5 mg Tablet
5 mg PO HS Qty: 2 0RF
Rx Instructions:
12/26/23: filled #30 on 08/03/23 [facility]
sennosides-docusate sodium [Senokot-S] 8.6-50 mg Tablet
2 tab PO HS
guaifenesin 100 mg/5 mL Liquid
600 mg PO Q6H PRN (Reason: respiratory cough)
insulin aspart U-100 [Novolog FlexPen U-100 Insulin] 100 unit/mL (3 mL) Insulin Pen
2 - 14 sliding scale dose SC ACHS
Rx Instructions:
sliding scale: 201-250= 2; 251-300= 4; 301-350= 6; 351-400= 8; 401-450= 10; 451-500= 14
polyethylene glycol 3350 [Miralax] 17 gram powder in packet
17 g PO HS PRN (Reason: constipation )
docusate sodium 100 mg capsule
200 mg PO DAILY
insulin aspart U-100 [Novolog FlexPen U-100 Insulin] 100 unit/mL (3 mL) insulin pen
20 units SC MEALS
Rx Instructions:
notify MD if BS<60 or >500
acetaminophen 325 mg Tablet
325 mg PO Q4H PRN (Reason: mild pain )
Glucagon Emergency Kit (human) 1 mg recon soln
1 mg IM PRN PRN (Reason: symptomatic hypoglycemia)
Rx Instructions:
Administer if not responding to PO meds or if unble to administer PO meds.
acetaminophen 325 mg tablet
650 mg PO Q4H PRN (Reason: moderate pain/temp>100F )
clonazepam 0.5 MG tablet
0.5 mg PO HS Qty: 4 0RF
Rx Instructions:
12/26/23: filled for #30 tabs on 11/29/23 [facility]
Changed
hydrocodone-acetaminophen 5-325 mg tablet
1 tab PO Q4HPRN PRN (Reason: severe pain) Qty: 4 0RF
Rx Instructions:
12/26/23: filled #60 tablets on 04/25/23 [facility]
Held
clopidogrel 75 MG tablet
75 mg PO DAILY
Hold Instructions: Resume on 01/08/24.
Discharge Orders:
Discharge Patient (As Directed); Ordered 12/28/23
Ordered By: Jose E Hylton
Discharge Date and Time
Discharge Date/Time: 12/28/23 20:30
--- NOTE | 2023-12-28 11:56 | CM ---
Placed a call to Alejandra in admissions at [facility] who confirmed that she can accept patient back today. #For report [phone] and fax [phone].
Medical necessity and transfer sheet completed and provided to [facility] educator.
[2023-12-28 12:10] LABS: Glucose - Point of Care 370 mg/dl (70-99)
[2023-12-28] MEDS: NOVOLOG FLEXPEN-LOW RESISTANCE 5 UNITS SC (12:10)
[2023-12-28 15:00] VITALS: BP 137/55
[2023-12-28 16:14] LABS: Glucose - Point of Care 290 mg/dl (70-99)
[2023-12-28] MEDS: NOVOLOG FLEXPEN-MODERATE RESISTANCE 5 UNITS SC (16:16)
[2023-12-28 19:25] LABS: Hepatitis C Antibody Negative (Negative)
--- NOTE | 2023-12-28 20:00 | PTCARENOTE ---
Patient got picked up by Ambulance at this time.
--- NOTE | 2023-12-29 10:28 | PN.CDI ---
CDI
- -
CDI:
Physician Documentation Request
Admit Date: 12/26/23 01:18
Dear Doctor Concetta,
Patient admitted with anemia.
12/27 PN, 'Severe symptomatic microcytic anemia...Plavix on hold.'
12/27 Discharge summary, 'Acute blood loss anemia... Suspicion for gastrointestinal bleed.'
Please clarify the likely relationship between these conditions:
Yes, acute blood loss anemia is associated with/ enhanced by Plavix.
No, acute blood loss anemia is not associated with/ enhanced by Plavix but it is due to ___. (Please specify)
Other
Use of terms such as suspected, likely, concern for, or probable (associated with a specific diagnosis that is being evaluated, monitored, or treated as if it exists) are acceptable and can be coded in the inpatient setting, when documented at the
time of discharge.
Thank you,
Cynthia YANEZ,RN,CCDS
CDI Specialist
Available via [place] text
Please use your independent medical judgment in providing your response.
--- NOTE | 2023-12-29 11:57 | PN.CDI ---
CDI
- -
CDI:
Physician Documentation Request
Admit Date: 12/26/23 01:18
Dear Doctor Concetta,
Clinical Indicators:
Patient admitted with severe symptomatic microcytic anemia.
Home medications include: Clopidogrel 75 mg PO DAILY.
12/27 PN, '2 units of packed red blood cells ordered hemoglobin 8.9-->today hb 9...Plavix on hold.'
12/27 Discharge Summary: ' Acute blood loss anemia...Suspicion for gastrointestinal bleed and further workup as outpatient.'
Please clarify the likely relationship between these conditions:
Yes, acute blood loss anemia is related to/associated with/exacerbated by Plavix.
No, acute blood loss anemia is not related to/associated with/exacerbated by Plavix but it is due to ___. (Please specify)
Unable to determine
Use of terms such as suspected, likely, concern for, or probable (associated with a specific diagnosis that is being evaluated, monitored, or treated as if it exists) are acceptable and can be coded in the inpatient setting, when documented at the
time of discharge.
Thank you,
BEAU Samuel RN
CDI Specialist
available via [employer] text
Please use your independent medical judgment in providing your response.
== END 2023-12-28 20:30 | DRG 813 ==
LOC: 3 WEST ACU 01:18
PROVIDERS: Clinical Nurse Specialist Family Health; Hospitalist; ADMITTING PHYSICIAN Internal Medicine; ATTENDING PHYSICIAN Hospitalist; CONSULT PHYSICIAN Internal Medicine Gastroenterology; EMERGENCY PHYSICIAN Emergency Medicine; FAMILY PHYSICIAN Internal Medicine
DX: D68.32 Hemorrhagic disorder due to extrinsic circulating anticoagulants (principal); D62 Acute posthemorrhagic anemia; N39.0 Urinary tract infection, site not specified; F11.20 Opioid dependence, uncomplicated; D50.9 Iron deficiency anemia, unspecified; E11.42 Type 2 diabetes mellitus with diabetic polyneuropathy; E11.22 Type 2 diabetes mellitus with diabetic chronic kidney disease; E11.649 Type 2 diabetes mellitus with hypoglycemia without coma; K21.9 Gastro-esophageal reflux disease without esophagitis; N32.81 Overactive bladder; G47.00 Insomnia, unspecified; F32.A Depression, unspecified; F41.9 Anxiety disorder, unspecified; J44.9 Chronic obstructive pulmonary disease, unspecified; Z66 Do not resuscitate; E78.00 Pure hypercholesterolemia, unspecified; E66.9 Obesity, unspecified; Z68.38 Body mass index [BMI] 38.0-38.9, adult; I12.9 Hypertensive chronic kidney disease with stage 1 through stage 4 chronic kidney disease, or unspecified chronic kidney disease
CPT/HCPCS: 36430; 80048; 80053; 81003; 81015; 82728; 82962; 83036; 83540; 83550; 83735; 85014; 85018; 85025; 85027; 86803; 86850; 86900; 86901; 86920; 87070; 87086; 96374; 99285; P9016

== ENCOUNTER → 2024-01-05 06:16 | Day surgery (SDC) | payer OTHER, SELFPAY | LOC: GI 06:16 | PROVIDERS: ATTENDING PHYSICIAN Internal Medicine | DX: D50.9 Iron deficiency anemia, unspecified (principal); Z53.8 Procedure and treatment not carried out for other reasons | CPT/HCPCS: 45378 ==

== ENCOUNTER → 2024-02-19 12:15 | Outpatient (REF) | payer OTHER, SELFPAY ==
[2024-02-19 12:04] LABS: % Basophils 0.9 % (0-2); % Eosinophils 3.4 % (0-6); % Immature Granulocytes 0.3 % (0-0.5); % Lymphocytes 8.9 % (20.5-51.1); % Monocytes 6.6 % (1.7-9.3); % Neutrophils 79.9 % (42.2-75.2); Absolute Basophils 0.1 10^3/uL (0-0.2); Absolute Eosinophils 0.3 10^3/uL (0-0.7); Absolute Lymphocytes 0.8 10^3/uL (1.2-3.4); Absolute Monocytes 0.6 10^3/uL (0.1-0.6); Absolute Neutrophils 7.4 10^3/uL (1.4-6.5); Hematocrit 26.7 % (37.0-47.0); Hemoglobin 8.3 g/dL (12.0-16.0); Mean Corp Hgb Conc. 31.1 g/dL (33.0-37.0); Mean Corpuscular Hgb 26.7 pg (27.0-31.0); Mean Corpuscular Volume 85.9 fL (81.0-99.0); Mean Platelet Volume 9.7 fL (7.4-10.4); Nucleated Red Blood Cells % 0 %; Platelet Count 389 10^3/uL (130-400); Red Blood Cell Count 3.11 10^6/uL (4.20-5.40); Red Cell Dist. Width 17.4 % (11.5-14.5); White Blood Cell Count 9.2 10^3/uL (4.8-10.8)
== END ==
LOC: OIDL 12:15
PROVIDERS: ATTENDING PHYSICIAN Internal Medicine Hematology & Oncology
DX: D50.0 Iron deficiency anemia secondary to blood loss (chronic) (principal)
CPT/HCPCS: 85025

== ENCOUNTER → 2024-03-11 15:26 | Outpatient (REF) | payer OTHER, SELFPAY ==
[2024-03-11 15:22] LABS: % Basophils 0.8 % (0-2); % Eosinophils 4.4 % (0-6); % Immature Granulocytes 0.1 % (0-0.5); % Lymphocytes 14.1 % (20.5-51.1); % Monocytes 6.8 % (1.7-9.3); % Neutrophils 73.8 % (42.2-75.2); Absolute Basophils 0.1 10^3/uL (0-0.2); Absolute Eosinophils 0.3 10^3/uL (0-0.7); Absolute Monocytes 0.5 10^3/uL (0.1-0.6); Absolute Neutrophils 5.4 10^3/uL (1.4-6.5); Hematocrit 26.9 % (37.0-47.0); Hemoglobin 8.6 g/dL (12.0-16.0); Mean Corpuscular Hgb 27.4 pg (27.0-31.0); Mean Corpuscular Volume 85.7 fL (81.0-99.0); Mean Platelet Volume 9.4 fL (7.4-10.4); Nucleated Red Blood Cells % 0 %; Platelet Count 386 10^3/uL (130-400); Red Blood Cell Count 3.14 10^6/uL (4.20-5.40); Red Cell Dist. Width 17.2 % (11.5-14.5); White Blood Cell Count 7.4 10^3/uL (4.8-10.8)
== END ==
LOC: OIDL 15:26
PROVIDERS: ATTENDING PHYSICIAN Internal Medicine Hematology & Oncology
DX: D50.0 Iron deficiency anemia secondary to blood loss (chronic) (principal)
CPT/HCPCS: 85025

== ENCOUNTER → 2024-03-25 15:29 | Outpatient (REF) | payer OTHER, SELFPAY ==
[2024-03-25 15:29] LABS: % Basophils 0.9 % (0-2); % Eosinophils 4.3 % (0-6); % Immature Granulocytes 0.4 % (0-0.5); % Lymphocytes 12.5 % (20.5-51.1); % Monocytes 6.1 % (1.7-9.3); % Neutrophils 75.8 % (42.2-75.2); Absolute Basophils 0.1 10^3/uL (0-0.2); Absolute Eosinophils 0.4 10^3/uL (0-0.7); Absolute Lymphocytes 1.1 10^3/uL (1.2-3.4); Absolute Monocytes 0.5 10^3/uL (0.1-0.6); Absolute Neutrophils 6.5 10^3/uL (1.4-6.5); Hematocrit 28.2 % (37.0-47.0); Hemoglobin 9.2 g/dL (12.0-16.0); Mean Corp Hgb Conc. 32.6 g/dL (33.0-37.0); Mean Corpuscular Hgb 28.7 pg (27.0-31.0); Mean Corpuscular Volume 87.9 fL (81.0-99.0); Mean Platelet Volume 9.4 fL (7.4-10.4); Nucleated Red Blood Cells % 0 %; Platelet Count 445 10^3/uL (130-400); Red Blood Cell Count 3.21 10^6/uL (4.20-5.40); Red Cell Dist. Width 16.7 % (11.5-14.5); White Blood Cell Count 8.6 10^3/uL (4.8-10.8)
== END ==
LOC: OIDL 15:29
PROVIDERS: ATTENDING PHYSICIAN Internal Medicine Hematology & Oncology
DX: D50.0 Iron deficiency anemia secondary to blood loss (chronic) (principal)
CPT/HCPCS: 85025

== ENCOUNTER → 2024-04-01 15:35 | Outpatient (REF) | payer OTHER, SELFPAY ==
[2024-04-01 13:59] LABS: % Basophils 0.9 % (0-2); % Eosinophils 3.8 % (0-6); % Immature Granulocytes 0.6 % (0-0.5); % Lymphocytes 9.1 % (20.5-51.1); % Monocytes 6.5 % (1.7-9.3); % Neutrophils 79.1 % (42.2-75.2); Absolute Basophils 0.1 10^3/uL (0-0.2); Absolute Eosinophils 0.3 10^3/uL (0-0.7); Absolute Immature Granulocytes 0.1 10^3/uL (0-0.05); Absolute Lymphocytes 0.8 10^3/uL (1.2-3.4); Absolute Monocytes 0.6 10^3/uL (0.1-0.6); Hematocrit 27.3 % (37.0-47.0); Hemoglobin 8.9 g/dL (12.0-16.0); Mean Corp Hgb Conc. 32.6 g/dL (33.0-37.0); Mean Corpuscular Volume 88.9 fL (81.0-99.0); Mean Platelet Volume 9.5 fL (7.4-10.4); Nucleated Red Blood Cells % 0 %; Platelet Count 344 10^3/uL (130-400); Red Blood Cell Count 3.07 10^6/uL (4.20-5.40); Red Cell Dist. Width 16.7 % (11.5-14.5); White Blood Cell Count 8.8 10^3/uL (4.8-10.8)
== END ==
LOC: OIDL 15:35
PROVIDERS: ATTENDING PHYSICIAN Internal Medicine Hematology & Oncology
DX: D50.0 Iron deficiency anemia secondary to blood loss (chronic) (principal)
CPT/HCPCS: 85025

== ENCOUNTER → 2024-05-20 14:39 | Outpatient (REF) | payer OTHER, SELFPAY ==
[2024-05-20 15:09] LABS: % Immature Granulocytes 0.3 % (0-0.5); % Lymphocytes 10.8 % (20.5-51.1); % Monocytes 6.5 % (1.7-9.3); % Neutrophils 76.4 % (42.2-75.2); Absolute Basophils 0.1 10^3/uL (0-0.2); Absolute Eosinophils 0.3 10^3/uL (0-0.7); Absolute Lymphocytes 0.7 10^3/uL (1.2-3.4); Absolute Monocytes 0.4 10^3/uL (0.1-0.6); Absolute Neutrophils 4.7 10^3/uL (1.4-6.5); Hematocrit 29.8 % (37.0-47.0); Mean Corp Hgb Conc. 33.6 g/dL (33.0-37.0); Mean Corpuscular Hgb 31.2 pg (27.0-31.0); Mean Corpuscular Volume 92.8 fL (81.0-99.0); Mean Platelet Volume 9.6 fL (7.4-10.4); Nucleated Red Blood Cells % 0 %; Platelet Count 351 10^3/uL (130-400); Red Blood Cell Count 3.21 10^6/uL (4.20-5.40); Red Cell Dist. Width 13.8 % (11.5-14.5); White Blood Cell Count 6.2 10^3/uL (4.8-10.8)
== END ==
LOC: OIDL 14:39
PROVIDERS: ATTENDING PHYSICIAN Internal Medicine Hematology & Oncology
DX: D50.0 Iron deficiency anemia secondary to blood loss (chronic) (principal)
CPT/HCPCS: 85025

== ENCOUNTER → 2024-06-03 06:23 | Day surgery (SDC) | payer OTHER, SELFPAY | LOC: SDS 06:23 | PROVIDERS: ATTENDING PHYSICIAN Internal Medicine | DX: D50.9 Iron deficiency anemia, unspecified (principal); Z53.8 Procedure and treatment not carried out for other reasons | CPT/HCPCS: 45378 ==

== ENCOUNTER → 2024-06-24 15:56 | Outpatient (REF) | payer OTHER, SELFPAY ==
[2024-06-24 14:39] LABS: % Eosinophils 3.9 % (0-6); % Immature Granulocytes 0.6 % (0-0.5); % Lymphocytes 13.2 % (20.5-51.1); % Monocytes 6.7 % (1.7-9.3); % Neutrophils 74.6 % (42.2-75.2); Absolute Basophils 0.1 10^3/uL (0-0.2); Absolute Eosinophils 0.3 10^3/uL (0-0.7); Absolute Immature Granulocytes 0.1 10^3/uL (0-0.05); Absolute Lymphocytes 1.1 10^3/uL (1.2-3.4); Absolute Monocytes 0.5 10^3/uL (0.1-0.6); Hematocrit 29.4 % (37.0-47.0); Hemoglobin 9.7 g/dL (12.0-16.0); Mean Corpuscular Hgb 30.3 pg (27.0-31.0); Mean Corpuscular Volume 91.9 fL (81.0-99.0); Mean Platelet Volume 9.4 fL (7.4-10.4); Nucleated Red Blood Cells % 0 %; Platelet Count 387 10^3/uL (130-400); Red Cell Dist. Width 12.9 % (11.5-14.5)
== END ==
LOC: OIDL 15:56
PROVIDERS: ATTENDING PHYSICIAN Internal Medicine Hematology & Oncology
DX: D50.0 Iron deficiency anemia secondary to blood loss (chronic) (principal)
CPT/HCPCS: 85025

== ENCOUNTER → 2024-07-01 16:20 | Outpatient (REF) | payer OTHER, SELFPAY ==
[2024-07-01 14:46] LABS: % Basophils 1.1 % (0-2); % Immature Granulocytes 0.5 % (0-0.5); % Lymphocytes 15.9 % (20.5-51.1); % Monocytes 7.8 % (1.7-9.3); % Neutrophils 69.7 % (42.2-75.2); Absolute Basophils 0.1 10^3/uL (0-0.2); Absolute Eosinophils 0.3 10^3/uL (0-0.7); Absolute Monocytes 0.5 10^3/uL (0.1-0.6); Absolute Neutrophils 4.6 10^3/uL (1.4-6.5); Hematocrit 29.8 % (37.0-47.0); Hemoglobin 9.9 g/dL (12.0-16.0); Mean Corp Hgb Conc. 33.2 g/dL (33.0-37.0); Mean Corpuscular Hgb 31.6 pg (27.0-31.0); Mean Corpuscular Volume 95.2 fL (81.0-99.0); Mean Platelet Volume 9.6 fL (7.4-10.4); Nucleated Red Blood Cells % 0 %; Platelet Count 327 10^3/uL (130-400); Red Blood Cell Count 3.13 10^6/uL (4.20-5.40); Red Cell Dist. Width 13.3 % (11.5-14.5); White Blood Cell Count 6.6 10^3/uL (4.8-10.8)
== END ==
LOC: OIDL 16:20
PROVIDERS: ATTENDING PHYSICIAN Internal Medicine Hematology & Oncology
DX: D50.0 Iron deficiency anemia secondary to blood loss (chronic) (principal)
CPT/HCPCS: 85025

== ENCOUNTER 2024-10-24 19:16 | Emergency (ER) | payer OTHER, SELFPAY ==
[2024-10-24 19:19] VITALS: BP 162/54; BMI 41.0
[2024-10-24 19:40] LABS: % Basophils 0.7 % (0-2); % Eosinophils 5.2 % (0-6); % Immature Granulocytes 0.1 % (0-0.5); % Lymphocytes 16.8 % (20.5-51.1); % Neutrophils 71.2 % (42.2-75.2); Absolute Basophils 0.1 10^3/uL (0-0.2); Absolute Eosinophils 0.4 10^3/uL (0-0.7); Absolute Lymphocytes 1.3 10^3/uL (1.2-3.4); Absolute Monocytes 0.5 10^3/uL (0.1-0.6); Absolute Neutrophils 5.3 10^3/uL (1.4-6.5); Hematocrit 26.9 % (37.0-47.0); Hemoglobin 8.9 g/dL (12.0-16.0); Mean Corp Hgb Conc. 33.1 g/dL (33.0-37.0); Mean Corpuscular Volume 93.7 fL (81.0-99.0); Mean Platelet Volume 9.5 fL (7.4-10.4); Nucleated Red Blood Cells % 0 %; Platelet Count 332 10^3/uL (130-400); Red Blood Cell Count 2.87 10^6/uL (4.20-5.40); Red Cell Dist. Width 12.5 % (11.5-14.5); White Blood Cell Count 7.4 10^3/uL (4.8-10.8)
[2024-10-24 19:53] LABS: Lactic Acid 1.5 mmol/L (0.7-2.0)
[2024-10-24 19:55] LABS: ALT (SGPT) 18 U/L (0-35); AST (SGOT) 24 U/L (14-36); Albumin 3.7 g/dl (3.5-5.0); Alkaline Phosphatase 46 U/L (38-126); Blood Urea Nitrogen 35 mg/dl (7-17); Calcium 8.8 mg/dl (8.4-10.2); Carbon Dioxide 24 mmol/L (22-30); Chloride 101 mmol/L (98-107); Estimated Creatinine Clearance 39 ml/min; Glucose 279 mg/dl (70-99); Potassium 4.5 mmol/L (3.5-5.1); Sodium 136 mmol/L (135-145); Total Bilirubin 0.3 mg/dl (0.2-1.3); eGFR 40.47
[2024-10-24] MEDS: OMNIPAQUE 50 ML PO (19:58)
[2024-10-24 20:54] VITALS: BP 160/68
[2024-10-24 21:00] VITALS: BP 162/98
[2024-10-24] MEDS: MORPHINE SULFATE 4 MG IV (21:01)
[2024-10-24] MEDS: ZOFRAN 4 MG IV (21:30)
[2024-10-24 22:00] VITALS: BP 94/63
[2024-10-24 22:14] VITALS: BP 152/61
--- NOTE | 2024-10-24 22:40 | ED.GENMED ---
History of Present Illness
General
Chief Complaint: Abdominal Symptoms
Source: patient
Exam Limitations: none
Time Seen by Provider: 10/24/24 19:20
History of Present Illness
History of Present Illness:
69-year-old female presents with right-sided abdominal cramping. Patient states she used to have and still does have some cramping occasionally in her right amputation and she states that this time she felt in her abdomen. She states she was given
Tylenol for pain which did not do anything. She denies fevers. States the pain comes and goes. No vomiting. No back pain. No shortness of breath.
Past History
Past History
ED Past Medical History: CAD, COPD (Patient denies), CVA (Patient denies), GERD, HTN, Hypercholesterolemia, IDDM, Psychiatric (Depression, anxiety) and Other (Neuropathy, cardiomyopathy, PVD, Diverticulitis, Phantom limb pain, Anemia)
ED Past Surgical History: Appendectomy, Cardiac (Stent) and Orthopedic (Right above-knee amputation. )
Patient has exhibited threatening behavior?: No
PSI?: No
Social History
Tobacco: Non-smoker
Alcohol: None
Drug: None
Personal:
Living: group home ([facility])
Phy Exam
Physical Exam
Physical Exam:
CONSTITUTIONAL Patient alert and oriented to person, place and time. Well-appearing. Vital signs reviewed.
HEAD atraumatic, normocephalic.
EYES eyelids normal to inspection, Extraocular muscles intact, Conjunctiva normal, Sclera normal.
NECK normal range of motion, Trachea midline, no jugular venous distention.
RESPIRATORY CHEST No respiratory distress noted, Chest expansion equal, Bilateral breath sounds clear.
CARDIOVASCULAR regular rate and rhythm, Heart sounds normal.
ABDOMEN abdomen nontender, Bowel sounds normal. No distention.
BACK normal inspection, no obvious deformities
UPPER EXTREMITY range of motion normal, Motor strength normal, no cyanosis, no edema.
LOWER EXTREMITY Motor strength normal, no cyanosis, no edema. Right AKA
NEURO Speech normal, No focal motor deficits, [place] coma scale 15, Memory normal, Cranial Nerves intact to screening exam.
SKIN skin warm, dry, and normal in color.
Course
Orders/Labs/Results
Orders:
Orders
10/24/24 19:25
Urinalysis Reflex To Culture Urgent
10/24/24 19:30
Complete Blood Count/With Diff Urgent
Comprehensive Metabolic Panel Urgent
Lactic Acid Urgent
10/24/24 19:41
Iohexol [Omnipaque] See Protocol PO NOW STA
10/24/24 19:42
CT Abd/pel (oral only)-DH Only Urgent
Comment:
Reason For Exam: R sided abd pain
10/24/24 20:58
Morphine Sulfate 4 mg IV NOW STA
10/24/24 21:28
Ondansetron Injectable [Zofran] 4 mg .ROUTE .STK-MED ONE
10/24/24 21:30
Ondansetron Injectable [Zofran] 4 mg IV NOW STA
Abnormal Lab Results
10/24/24
19:30
RBC 2.87 L 10^6/uL
(4.20-5.40)
Hgb 8.9 L g/dL
(12.0-16.0)
Hct 26.9 L %
(37.0-47.0)
Lymphocytes % 16.8 L %
(20.5-51.1)
BUN 35 H mg/dl
(7-17)
Creatinine 1.4 H mg/dL
(0.6-1.0)
Glucose 279 H mg/dl
(70-99)
Total Protein 6.0 L g/dl
(6.3-8.2)
10/24/24 19:30
10/24/24 19:30
Vital Signs
Initial and Last Documented VS:
Initial Vital Signs
Temp Pulse Resp BP Pulse Ox
97.4 F 66 18 162/54 95
10/24/24 19:19 10/24/24 19:19 10/24/24 19:19 10/24/24 19:19 10/24/24 19:19
Last Documented Vital Signs
Temp Pulse Resp BP Pulse Ox
97.4 F 70 16 152/61 93
10/24/24 19:19 10/24/24 22:30 10/24/24 22:30 10/24/24 22:14 10/24/24 22:15
MDM/Problems Addressed
MDM/Problems Addressed:
Abdominal pain, obesity, chronic anemia
*Radiology
Radiology exam reviewed: preliminary read by ED provider (No free air noted)
*Pulse Oximetry
Patient hypoxic: no
*Critical Care Note
Total Time (30-74mins, 75-104mins- exclusive of procedures): Not Applicable
Data Reviewed
Source: patient
Patient Management
Escalation/DeEscalation of care consider admission/obs:
Labs and CT grossly unremarkable. Does have chronic anemia. Okay for discharge to facility
ED Attending Note
-
Portions of this chart may have been created with voice recognition software.� Occasional wrong word or��sound alike� substitutions may have occurred due to the inherent limitations of voice recognition software.
Discharge Plan
Departure
Patient Disposition: Home (Routine Discharge)
Date of Disposition: 10/24/24
Time of Disposition: 22:42
Patient with high blood pressure during this ER visit?: Yes
Discharge Problem:
Obesity, Abdominal pain
Instructions: Abdominal Pain, BLOOD PRESSURE
Prescriptions:
No Action
atorvastatin 40 MG tablet
40 mg PO HS
clonidine 0.1 MG patch weekly
0.1 mg transdermal TH
clopidogrel 75 MG tablet
75 mg PO DAILY
loratadine 10 MG tablet
10 mg PO DAILY
amlodipine 5 MG tablet
5 mg PO DAILY
pantoprazole 40 MG tablet,delayed release (DR/EC)
40 mg PO DAILY
solifenacin 5 MG tablet
5 mg PO DAILY
metoprolol tartrate 100 MG tablet
100 mg PO BID
hydralazine 50 MG tablet
50 mg PO TID
calcitriol 0.25 MCG capsule
0.25 mcg PO DAILY
duloxetine 60 MG capsule,delayed release(DR/EC)
60 mg PO BID
pregabalin 75 MG capsule
75 mg PO BID
Rx Instructions:
12/26/23: filled #60 on 12/12/23 [facility]
fenofibrate nanocrystallized 48 MG tablet
48 mg PO DAILY
melatonin 5 mg Tablet
5 mg PO HS
Levemir FlexPen 100 unit/mL (3 mL) Insulin Pen
44 unit SC HS
Rx Instructions:
notify MD if BS<60 or >400
ipratropium-albuterol 0.5 mg-3 mg(2.5 mg base)/3 mL solution for nebulization
3 ml inhalation R Q6HPRN PRN (Reason: shortness of breath or wheezing)
zolpidem 5 mg Tablet
5 mg PO HS Qty: 2 0RF
Rx Instructions:
12/26/23: filled #30 on 08/03/23 [facility]
sennosides-docusate sodium [Senokot-S] 8.6-50 mg Tablet
2 tab PO HS
guaifenesin 100 mg/5 mL Liquid
600 mg PO Q6H PRN (Reason: respiratory cough)
insulin aspart U-100 [Novolog FlexPen U-100 Insulin] 100 unit/mL (3 mL) Insulin Pen
2 - 14 sliding scale dose SC ACHS
Rx Instructions:
sliding scale: 201-250= 2; 251-300= 4; 301-350= 6; 351-400= 8; 401-450= 10; 451-500= 14
polyethylene glycol 3350 [Miralax] 17 gram powder in packet
17 g PO HS PRN (Reason: constipation )
docusate sodium 100 mg capsule
200 mg PO DAILY
insulin aspart U-100 [Novolog FlexPen U-100 Insulin] 100 unit/mL (3 mL) insulin pen
20 units SC MEALS
Rx Instructions:
notify MD if BS<60 or >500
acetaminophen 325 mg Tablet
325 mg PO Q4H PRN (Reason: mild pain )
Glucagon Emergency Kit (human) 1 mg recon soln
1 mg IM PRN PRN (Reason: symptomatic hypoglycemia)
Rx Instructions:
Administer if not responding to PO meds or if unble to administer PO meds.
acetaminophen 325 mg tablet
650 mg PO Q4H PRN (Reason: moderate pain/temp>100F )
cephalexin 500 mg Capsule
500 mg PO BID 5 Days Qty: 10 0RF
Linzess 72 mcg Capsule
72 mcg PO DAILY@0700 Qty: 14 0RF
hydrocodone-acetaminophen 5-325 mg tablet
1 tab PO Q4HPRN PRN (Reason: severe pain) Qty: 4 0RF
Rx Instructions:
12/26/23: filled #60 tablets on 04/25/23 [facility]
clonazepam 0.5 MG tablet
0.5 mg PO HS Qty: 4 0RF
Rx Instructions:
12/26/23: filled for #30 tabs on 11/29/23 [facility]
Referrals:
Fernando Al I., DO [Family Provider] -
Activity Restrictions/Additional Instructions:
Return immediately for worsening pain, vomiting, fevers or any other concerns. Please see your doctor in the next 3 to 5 days for follow-up and reevaluation.
Interventions
Interventions:
*Risk Screen - Suicide Last Done: 10/24/24 19:19
*General Assessment Last Done: 10/24/24 19:19
*Neglect/Abuse Screening Last Done: 10/24/24 19:19
ED- Fall Risk Assessment Last Done: 10/24/24 19:19
*ED COVID-19 Vaccine History Last Done: 10/24/24 19:19
HI-Apubpi-Kxpnntzfjm Assessment Last Done: 10/24/24 19:50
Discharge Date and Time
Print Language: TAJIK
[2024-10-24 23:00] VITALS: BP 166/59
[2024-10-24] MEDS: NORCO 5/325 2 TABLET PO (23:41)
== END 2024-10-24 23:50 | disposition home or self-care (01) ==
LOC: EMR 19:16
PROVIDERS: EMERGENCY PHYSICIAN Emergency Medicine; FAMILY PHYSICIAN Internal Medicine
DX: R10.9 Unspecified abdominal pain (principal); J44.9 Chronic obstructive pulmonary disease, unspecified; K21.9 Gastro-esophageal reflux disease without esophagitis; I10 Essential (primary) hypertension; E11.51 Type 2 diabetes mellitus with diabetic peripheral angiopathy without gangrene; E66.9 Obesity, unspecified; E78.00 Pure hypercholesterolemia, unspecified; F41.8 Other specified anxiety disorders; I42.9 Cardiomyopathy, unspecified; D64.9 Anemia, unspecified; Z86.73 Personal history of transient ischemic attack (TIA), and cerebral infarction without residual deficits; Z89.611 Acquired absence of right leg above knee; Z90.49 Acquired absence of other specified parts of digestive tract; Z95.5 Presence of coronary angioplasty implant and graft
CPT/HCPCS: 99284; 96374; 96375; 74176; 80053; 83605; 85025

== ENCOUNTER → 2024-12-25 10:42 | Outpatient (REF) | payer OTHER, SELFPAY | LOC: WDC 10:42 | DX: N64.4 Mastodynia (principal) | CPT/HCPCS: 77062; 77066 ==